=== PATIENT | male | born 1975 | race Caucasian/White ===

== ENCOUNTER 2016-04-30 | Emergency (ER) | payer MEDICARE, OTHER | END 2016-04-30 21:44 | disposition left against medical advice (07) | DX: Z53.21 Procedure and treatment not carried out due to patient leaving prior to being seen by health care provider (principal) ==

== ENCOUNTER → 2016-11-17 | Outpatient (CLI) | payer MEDICARE | LOC: SLEEP 14:32 | DX: G47.33 Obstructive sleep apnea (adult) (pediatric) (principal) | CPT/HCPCS: 95811 ==